=== PATIENT | female | born 1960 | race Caucasian/White ===

== ENCOUNTER 2017-03-02 17:22 | Emergency (ER) | payer OTHER ==
[2017-03-02 17:30] VITALS: BP 116/62; PULSE 69; TEMP 98.9; BMI 24.7
--- NOTE | 2017-03-02 18:28 | PDOC ---
History of Present Illness - General Chief Complaint: Foreign Body (FB) Stated Complaint: COTTON STUCK IN EAR Time Seen by Provider: 03/02/17 18:08 History Source: Patient Exam Limitations: No Limitations - History of Present Illness Initial Comments: 03/02/17 18:31 Chief complaint: Piece of cotton stuck in left ear today History of present illness: Patient is a 56-year-old female with no significant medical history here today complaining of not being able to get a piece of cotton Q-tip out of her left ear that she used today. Patient reports that it is uncomfortable but not painful. Patient denies any fever or any nasal congestion and sore throat or ear pain or any other symptoms. Patient denies fever. Timing/Duration: 4-6 hours Severity: mild Associated Symptoms: reports: other (piece of cotton stuff in left ear today from q ti[) Past History - Past Medical History Allergies/Adverse Reactions: Allergies Allergy/AdvReac Type Severity Reaction Status Date / Time No Known Allergies Allergy Verified 03/02/17 17:29 Home Medications: Ambulatory Orders No Home Medications 0 dose .ROUTE UTDICT 04/26/13 Ibuprofen [Motrin -] 800 mg PO TID PRN #20 tablet 12/30/15 Diphenhydramine HCl [Benadryl -] 25 mg PO Q8H PRN #10 capsule 08/02/16 Fluticasone Prop 0.05% Nasal [Flonase -] 1 - 2 spray NS BID #1 spray.pump Diabetes: No HTN: No Hypercholesterolemia: No Other medical history: PATIENT DENIES MEDICAL PROBLEMS - Immunization History Immunization Up to Date: Yes - Psycho/Social/Smoking Cessation Hx Anxiety: No Suicidal Ideation: No Smoking Status: No Smoking History: Never smoked Have you smoked in the past 12 months: No Number of Cigarettes Smoked Daily: 0 Hx Alcohol Use: No Drug/Substance Use Hx: No Review of Systems - Review of Systems Able to Perform ROS?: Yes Constitutional: No: Symptoms Reported HEENTM: Yes: Other (cotton in left ear ) Respiratory: No: Symptoms reported Cardiac (ROS): No: Symptoms Reported ABD/GI: No: Symptoms Reported : No: Symptoms Reported Musculoskeletal: No: Symptoms Reported Integumentary: No: Symptoms Reported Neurological: No: Symptoms reported *Physical Exam - Vital Signs Last Vital Signs Temp Pulse Resp BP Pulse Ox 98.9 F 69 18 116/62 96 03/02/17 17:26 03/02/17 17:26 03/02/17 17:26 03/02/17 17:26 03/02/17 17:26 - Physical Exam General Appearance: Yes: Appropriately Dressed HEENT: positive: TMs Normal (right ear,, after cotton removal left ear TM clear , no erythema, no edema), Other (cotton in left ear canal ). negative: Pharyngeal Erythema, Tonsillar Exudate, Tonsillar Erythema, Nasal Congestion, Rhinorrhea, TM Bulging, TM Dull, TM Erythema Neck: negative: Lymphadenopathy (R), Lymphadenopathy (L) Respiratory/Chest: positive: Lungs Clear, Normal Breath Sounds. negative: Chest Tender, Respiratory Distress Cardiovascular: positive: Regular Rhythm, Regular Rate, S1, S2 Integumentary: positive: Normal Color Neurologic: positive: Alert, Normal Response, Responsive Procedures - Consent Consent obtained: From Patient - Additional Procedures Progress: 03/02/17 18:33 piece of cotton noticed and left ear canal using alligator forceps was able to remove without any complications no erythema or edema eighth of ear canal TM intact with no erythema or bulge noted Medical Decision Making - Medical Decision Making 03/02/17 18:32 Patient is a 56-year-old female with no significant medical history here today complaining of not being able to get a piece of cotton Q-tip out of her left ear that she used today. Patient reports that it is uncomfortable but not painful. Patient denies any fever or any nasal congestion and sore throat or ear pain or any other symptoms. Patient denies fever. 03/02/17 18:34 Cotton in left ear canal noted REMOVAL OF COTTON LEFT EAR CANAL PLAN: Using alligator forceps was able to removed piece of cotton from left ear canal without any complications *DC/Admit/Observation/Transfer Diagnosis at time of Disposition: Foreign body in left ear Qualifiers: Encounter type: initial encounter Qualified Code(s): T16.2XXA - Foreign body in left ear, initial encounter - Discharge Dispostion Disposition: HOME Condition at time of disposition: Stable - Patient Instructions Additional Instructions: Avoid using any other brand except for Q-tip Q-tips and do not put them far in your ear or wet them too much to clean your ears Return to emergency room if any pain in her left ear or any new symptoms develop Patient voiced understanding of discharge instructions and all questions were answered
== END 2017-03-02 18:51 | disposition home or self-care (01) ==
LOC: JER 17:22 → JERFT 17:22
DX: T16.2XXA Foreign body in left ear, initial encounter (principal)
CPT/HCPCS: 99281-25

== ENCOUNTER 2021-11-09 04:18 | Day surgery (SDC) | payer OTHER ==
[2021-11-08 13:41] VITALS: BMI 23.4
[2021-11-09] MEDS ORDERED: MIDAZOLAM HCL 2 MG/2 ML SINGLE DOSE VIAL ONE (12:19)
[2021-11-09] MEDS ORDERED: BUPIVACAINE HCL/PF 0.5% (5MG/ML) 10 ML VIAL ONE (12:58)
[2021-11-09] MEDS ORDERED: LIDOCAINE HCL 1%, 10 MG/ML (20ML VIAL) ONE (12:58)
[2021-11-09] MEDS ORDERED: ceFAZolin SODIUM 1 GM VIAL IVPB ONE (13:20)
[2021-11-09] MEDS ORDERED: DEXAMETHASONE SOD PHOSPHATE 4 MG/1 ML VIAL ONE (13:22)
[2021-11-09] MEDS ORDERED: ceFAZolin SODIUM 1 GM VIAL ONE (13:22)
[2021-11-09] MEDS ORDERED: KETOROLAC TROMETHAMINE 30 MG/1 ML VIAL ONE (13:22)
[2021-11-09] MEDS ORDERED: ONDANSETRON 4 MG/2 ML VIAL ONE (13:22)
[2021-11-09] MEDS ORDERED: PROPOFOL 20 ML ONE (14:05)
[2021-11-09] MEDS ORDERED: ACETAMINOPHEN 325 MG TABLET (FP) PO PRN (14:55)
[2021-11-09] MEDS ORDERED: oxyCODONE HCL 5 MG TABLET PO PRN (14:55)
[2021-11-09] MEDS ORDERED: ONDANSETRON 4 MG/2 ML VIAL IVPUSH PRN (14:55)
[2021-11-09] MEDS ORDERED: LACTATED RINGERS SOLUTION 1,000 ML IV SCH (15:00)
[2021-11-09 17:04] VITALS: BP 118/63; PULSE 55; TEMP 97.3
== END 2021-11-09 17:15 | disposition home or self-care (01) ==
LOC: JASU-SURG 04:18
PROVIDERS: ATTEND Podiatrist Foot & Ankle Surgery
PROC: 0QBN0ZZ Excision of Right Metatarsal, Open Approach (ICD-10-PCS; 2021-11-09)
PROC: 0QPN04Z Removal of Internal Fixation Device from Right Metatarsal, Open Approach (ICD-10-PCS; 2021-11-09)
PROC: 0SRQ0JZ Replacement of Left Toe Phalangeal Joint with Synthetic Substitute, Open Approach (ICD-10-PCS; principal; 2021-11-09 10:00)
DX: M20.11 Hallux valgus (acquired), right foot (principal); M20.42 Other hammer toe(s) (acquired), left foot; T84.84XA Pain due to internal orthopedic prosthetic devices, implants and grafts, initial encounter; Y79.1 Therapeutic (nonsurgical) and rehabilitative orthopedic devices associated with adverse incidents; Y92.9 Unspecified place or not applicable
CPT/HCPCS: 73630-TC-LT; 73630-TC-RT-FY; 88300-TC; 88304-TC; 88311-TC; 94760

== ENCOUNTER 2022-01-31 14:18 | Inpatient (IN) | payer OTHER ==
[2022-01-31] MEDS ORDERED: VANCOMYCIN HCL 1,500 MG in DEXTROSE 5%-WATER - 500 ML IVPB ONE (15:19)
[2022-01-31] MEDS ORDERED: CEFTRIAXONE 2,000 MG in DEXTROSE 5%-WATER - 50 ML IVPB ONE (15:20)
[2022-01-31] MEDS ORDERED: CEFTRIAXONE 2 GM/100 ML BAG IVPB ONE (15:32)
[2022-01-31 15:59] LABS: BASO % 0.9 % (0-2.0); EOS % 2.5 % (0-4.5); HEMATOCRIT 44.1 % (32.4-45.2); HEMOGLOBIN 14.8 GM/dL (10.7-15.3); MCH 30.3 pg (25.7-33.7); MCHC 33.5 g/dl (32.0-36.0); MEAN CELL VOLUME 90.5 fl (80-96); MEAN PLT VOLUME 8.5 fl (7.5-11.1); MONO % 5.2 % (3.8-10.2); NEUT % 55.4 % (42.8-82.8); PLATELET COUNT 232 10^3/uL (134-434); RBC 4.87 M/mm3 (3.60-5.2); RDW 13.6 % (11.6-15.6); WHITE BLOOD COUNT 4.5 K/mm3 (4.0-10.0)
[2022-01-31 16:06] LABS: INR 0.91 (0.83-1.09); PROTHROMBIN TIME (PATIENT) 10.5 SEC (9.7-13.0)
[2022-01-31 16:22] LABS: CHLORIDE 107 mmol/L (98-107); SODIUM 141 mmol/L (136-145)
[2022-01-31 16:24] LABS: CALCIUM 9.1 mg/dL (8.5-10.1)
[2022-01-31 16:25] LABS: ALBUMIN 4.6 g/dl (3.4-5.0); ANION GAP 6 MMOL/L (8-16); CO2 28 mmol/L (21-32); GLUCOSE,RANDOM 98 mg/dL (74-106)
[2022-01-31] MEDS ORDERED: LIDOCAINE HCL 1%, 10 MG/ML (50 mL VIAL) INF ONE (16:25)
[2022-01-31] MEDS ORDERED: LIDOCAINE HCL 1%, 10 MG/ML (20ML VIAL) ONE (16:27)
[2022-01-31 16:28] LABS: CREATININE 0.5 mg/dL (0.55-1.3); SGOT/AST 18 U/L (15-37); SGPT/ALT 32 U/L (13-61)
[2022-01-31 16:29] LABS: BILIRUBIN,TOTAL 0.2 mg/dL (0.2-1); TOT PROT 7.9 g/dl (6.4-8.2)
[2022-01-31 16:31] LABS: ALK PHOS 96 U/L (45-117)
[2022-01-31] MEDS ORDERED: MELATONIN 5 MG TABLETS PO PRN (17:03)
[2022-01-31 17:08] LABS: ERYTHROCYTE SEDIMENTATION RATE 11 mm/hr (0-30)
[2022-01-31] MEDS ORDERED: ACETAMINOPHEN 1000 MG/100 ML BAG IVPB ONE (18:42)
[2022-01-31] MEDS ORDERED: ACETAMINOPHEN INJECTION 100 ML IVPB ONE (18:44)
[2022-01-31 22:10] VITALS: BMI 22.3
[2022-02-01] MEDS ORDERED: ACETAMINOPHEN 325 MG TABLET (FP) PO PRN (07:27)
[2022-02-01 08:19] LABS: BASO % 0.9 % (0-2.0); HEMATOCRIT 37.6 % (32.4-45.2); LYMPH % 41.5 % (8-40); MCH 31.1 pg (25.7-33.7); MCHC 34.7 g/dl (32.0-36.0); MEAN CELL VOLUME 89.7 fl (80-96); MONO % 7.2 % (3.8-10.2); NEUT % 47.4 % (42.8-82.8); PLATELET COUNT 189 10^3/uL (134-434); RBC 4.19 M/mm3 (3.60-5.2); RDW 13.5 % (11.6-15.6); WHITE BLOOD COUNT 3.6 K/mm3 (4.0-10.0)
[2022-02-01 08:43] LABS: CALCIUM 8.6 mg/dL (8.5-10.1)
[2022-02-01 08:46] LABS: CREATININE 0.5 mg/dL (0.55-1.3)
[2022-02-01] MEDS ORDERED: VANCOMYCIN 1 GM in D5W (PRE-DOCKED) 1,000 MG/250 ML IVPB SCH (10:00)
[2022-02-01] MEDS ORDERED: VANCOMYCIN 1 GM/200 ML PREMIX BAG IVPB ONE (10:00)
[2022-02-01] MEDS: ENOXAPARIN NA (PORCINE) 40 MG/0.4 ML DISP.SYRIN SQ SCH (10:19)
[2022-02-01] MEDS ORDERED: DEXTROSE 5%-WATER 100 ML IVPB ONE (15:50)
[2022-02-01] MEDS: CEFTRIAXONE 2 GM in DEXTROSE 5%-WATER 100 ML IVPB SCH (15:57)
[2022-02-01] MEDS ORDERED: CEFTRIAXONE 2 GM-D5W BAG 2 GM/50 ML BAG IVPB SCH (20:00)
[2022-02-01] MEDS: VANCOMYCIN/WATER FOR INJ (PEG) 1,000 MG/200 ML BAG IVPB SCH (21:03)
[2022-02-02] MEDS ORDERED: DEXTROSE 5%-WATER 100 ML IVPB ONE (09:52)
[2022-02-02] MEDS: CEFTRIAXONE 2 GM in DEXTROSE 5%-WATER 100 ML IVPB SCH (09:53)
[2022-02-02] MEDS: ENOXAPARIN NA (PORCINE) 40 MG/0.4 ML DISP.SYRIN SQ SCH (09:53)
[2022-02-02] MEDS ORDERED: VANCOMYCIN 1 GM in D5W (PRE-DOCKED) 1,000 MG/250 ML IVPB SCH (10:00)
[2022-02-02 10:53] LABS: HEMATOCRIT 38.7 % (32.4-45.2); HEMOGLOBIN 13.5 GM/dL (10.7-15.3); MCH 31.4 pg (25.7-33.7); MCHC 34.8 g/dl (32.0-36.0); MEAN CELL VOLUME 90.4 fl (80-96); MEAN PLT VOLUME 8.5 fl (7.5-11.1); PLATELET COUNT 193 10^3/uL (134-434); RBC 4.28 M/mm3 (3.60-5.2); RDW 13.6 % (11.6-15.6); WHITE BLOOD COUNT 3.5 K/mm3 (4.0-10.0)
[2022-02-02 11:23] LABS: BLOOD UREA NITROGEN 15.4 mg/dL (7-18); CALCIUM 8.9 mg/dL (8.5-10.1)
[2022-02-02 11:26] LABS: CREATININE 0.4 mg/dL (0.55-1.3)
[2022-02-02] MEDS: VANCOMYCIN/WATER FOR INJ (PEG) 1,000 MG/200 ML BAG IVPB SCH (12:01)
[2022-02-02] MEDS ORDERED: SODIUM CHLORIDE 0.9% 500 ML INFUS.BAG IV ONE (16:17)
[2022-02-03] MEDS ORDERED: DEXTROSE 5%-WATER 100 ML IVPB ONE (08:50)
[2022-02-03] MEDS: CEFTRIAXONE 2 GM in DEXTROSE 5%-WATER 100 ML IVPB SCH (09:23)
[2022-02-03] MEDS: ENOXAPARIN NA (PORCINE) 40 MG/0.4 ML DISP.SYRIN SQ SCH (09:29)
[2022-02-03 10:55] LABS: EOS % 3.3 % (0-4.5); HEMATOCRIT 38.4 % (32.4-45.2); LYMPH % 39.7 % (8-40); MCH 30.6 pg (25.7-33.7); MCHC 33.8 g/dl (32.0-36.0); MEAN CELL VOLUME 90.8 fl (80-96); MEAN PLT VOLUME 8.7 fl (7.5-11.1); MONO % 6.8 % (3.8-10.2); NEUT % 49.2 % (42.8-82.8); PLATELET COUNT 178 10^3/uL (134-434); RBC 4.24 M/mm3 (3.60-5.2); RDW 13.7 % (11.6-15.6); WHITE BLOOD COUNT 3.3 K/mm3 (4.0-10.0)
[2022-02-04] MEDS ORDERED: DEXTROSE 5%-WATER 100 ML IVPB ONE (08:50)
[2022-02-04] MEDS: CEFTRIAXONE 2 GM in DEXTROSE 5%-WATER 100 ML IVPB SCH (09:09)
[2022-02-04] MEDS: ENOXAPARIN NA (PORCINE) 40 MG/0.4 ML DISP.SYRIN SQ SCH (09:14)
[2022-02-04 09:41] LABS: BASO % 0.9 % (0-2.0); EOS % 3.1 % (0-4.5); HEMATOCRIT 40.3 % (32.4-45.2); HEMOGLOBIN 13.6 GM/dL (10.7-15.3); LYMPH % 39.9 % (8-40); MCH 30.4 pg (25.7-33.7); MCHC 33.9 g/dl (32.0-36.0); MEAN CELL VOLUME 89.7 fl (80-96); MEAN PLT VOLUME 8.4 fl (7.5-11.1); MONO % 5.8 % (3.8-10.2); NEUT % 50.3 % (42.8-82.8); PLATELET COUNT 208 10^3/uL (134-434); RBC 4.49 M/mm3 (3.60-5.2); RDW 13.7 % (11.6-15.6); WHITE BLOOD COUNT 3.9 K/mm3 (4.0-10.0)
[2022-02-04 10:02] LABS: CALCIUM 8.7 mg/dL (8.5-10.1)
[2022-02-04 10:03] LABS: BLOOD UREA NITROGEN 17.2 mg/dL (7-18)
[2022-02-04 10:25] LABS: CREATININE 0.4 mg/dL (0.55-1.3)
[2022-02-05] MEDS ORDERED: DEXTROSE 5%-WATER 100 ML IVPB ONE ×2 (09:44→10:04)
[2022-02-05] MEDS: ENOXAPARIN NA (PORCINE) 40 MG/0.4 ML DISP.SYRIN SQ SCH (10:05)
[2022-02-05] MEDS: CEFTRIAXONE 2 GM in DEXTROSE 5%-WATER 100 ML IVPB SCH (10:05)
[2022-02-06 08:26] LABS: BASO % 0.8 % (0-2.0); EOS % 3.5 % (0-4.5); HEMATOCRIT 39.1 % (32.4-45.2); HEMOGLOBIN 13.2 GM/dL (10.7-15.3); LYMPH % 43.3 % (8-40); MCH 30.5 pg (25.7-33.7); MCHC 33.8 g/dl (32.0-36.0); MEAN CELL VOLUME 90.2 fl (80-96); MEAN PLT VOLUME 8.5 fl (7.5-11.1); MONO % 7.5 % (3.8-10.2); NEUT % 44.9 % (42.8-82.8); PLATELET COUNT 195 10^3/uL (134-434); RBC 4.33 M/mm3 (3.60-5.2); RDW 13.6 % (11.6-15.6); WHITE BLOOD COUNT 3.7 K/mm3 (4.0-10.0)
[2022-02-06 08:41] LABS: CALCIUM 8.7 mg/dL (8.5-10.1)
[2022-02-06 08:42] LABS: BLOOD UREA NITROGEN 14.7 mg/dL (7-18)
[2022-02-06 08:45] LABS: CREATININE 0.5 mg/dL (0.55-1.3)
[2022-02-06] MEDS ORDERED: DEXTROSE 5%-WATER 100 ML IVPB ONE (09:52)
[2022-02-06] MEDS: CEFTRIAXONE 2 GM in DEXTROSE 5%-WATER 100 ML IVPB SCH (10:24)
[2022-02-06] MEDS: ENOXAPARIN NA (PORCINE) 40 MG/0.4 ML DISP.SYRIN SQ SCH (12:43)
[2022-02-06 19:05] VITALS: BP 125/76; PULSE 60; TEMP 98.3
== END 2022-02-06 19:01 | disposition home or self-care (01) | DRG 344 ==
LOC: JER 14:18 → JERBED 16:36 → J5S 21:24
PROVIDERS: ADMIT Internal Medicine
PROC: 0QBR3ZX Excision of Left Toe Phalanx, Percutaneous Approach, Diagnostic (ICD-10-PCS; principal; 2022-01-31)
PROC: 3E10X8Z Irrigation of Skin and Mucous Membranes using Irrigating Substance (ICD-10-PCS; 2022-01-31)
PROC: 05HB33Z Insertion of Infusion Device into Right Basilic Vein, Percutaneous Approach (ICD-10-PCS; 2022-02-06)
DX: M86.8X7 Other osteomyelitis, ankle and foot (principal); E78.5 Hyperlipidemia, unspecified; R73.03 Prediabetes; G47.00 Insomnia, unspecified
CPT/HCPCS: 36415; 36569; 73630-TC-LT; 73720-LT; 80048; 80053; 83036; 84443; 85025; 85027; 85610; 85651; 85730; 86140; 86850; 86900; 86901; 87040; 87070; 87205; 93005; 93010; 99285-25; C9803-CS; G0463-25; G0480; U0003; U0005

== ENCOUNTER 2022-08-24 09:12 | Emergency (ER) | payer OTHER ==
[2022-08-24 09:23] VITALS: BP 123/57; PULSE 67; RESP 18; TEMP 98.1; BMI 22.2
== END 2022-08-24 11:28 | disposition home or self-care (01) ==
LOC: JERFT 09:12 → JER 09:12 → JERFT 11:28
DX: L03.031 Cellulitis of right toe (principal)
CPT/HCPCS: 99282-25

== ENCOUNTER 2023-09-28 17:56 | Emergency (ER) | payer OTHER ==
[2023-09-28 18:50] VITALS: BP 140/73; PULSE 67; RESP 18; TEMP 97.9; BMI 22.8
[2023-09-28] MEDS ORDERED: IBUPROFEN 600 MG TABLET (FP) PO ONE ×2 (20:57→20:58)
== END 2023-09-28 22:25 | disposition home or self-care (01) ==
LOC: JERFT 17:56
DX: J02.9 Acute pharyngitis, unspecified (principal); R09.81 Nasal congestion; Z20.822 Contact with and (suspected) exposure to COVID-19
CPT/HCPCS: 0241U-QW; 87651; 99283-25

== ENCOUNTER 2023-10-01 10:19 | Emergency (ER) | payer OTHER ==
[2023-10-01 10:36] VITALS: BP 124/57; PULSE 60; RESP 18; TEMP 97.5; BMI 22.4
[2023-10-01] MEDS ORDERED: IBUPROFEN 400 MG TABLET (FP) PO ONE ×2 (11:12→11:50)
[2023-10-01] MEDS ORDERED: DEXAMETHASONE 4 MG TABLET (FP) PO ONE (11:13)
[2023-10-01] MEDS ORDERED: DEXAMETHASONE SOD PHOSPHATE 10 MG/1 ML VIAL ONE (11:50)
== END 2023-10-01 14:06 | disposition home or self-care (01) ==
LOC: JERFT 10:19
DX: J02.9 Acute pharyngitis, unspecified (principal); R09.81 Nasal congestion; R09.3 Abnormal sputum; R05.9 Cough, unspecified; B34.9 Viral infection, unspecified; J39.2 Other diseases of pharynx; Z20.822 Contact with and (suspected) exposure to COVID-19
CPT/HCPCS: 0241U-QW; 71046-TC-FY; 87070; 99284-25